=== PATIENT | male | born 1980 | race Caucasian/White ===

== ENCOUNTER 2019-03-22 20:31 | Emergency (ER) | payer MEDICAID, SELFPAY ==
[2019-03-22 20:32] VITALS: BP 172/90; PULSE 88; RESP 16; TEMP 36.6; O2SAT 97; BMI 39.6
--- NOTE | 2019-03-22 20:37 | ED.RN ---
AUNTS IN TRIAGE WITH PT, RELAYED TO THIS RN THAT PT CALLED THEM TO COME PICK HIM UP. PT FOUND SITTING ON [facility] OUTSIDE OF A [facility] ON [address]. PT TOLD AUNT HE WAS TRYING TO KEEP FROM CUTTING HIS WRISTS. AUNT STATES HE HAS A BROKEN CD CASE.
[2019-03-22 20:52] VITALS: RESP 16
[2019-03-22 21:06] LABS: Absolute Lymphocyte Count 1.39 X10^3/uL (0.83-4.51); Absolute Neutrophil Count 6.2 X10^3/uL (2.0-7.7); Basophil# 0.08 X10^3/uL; Basophil% 0.9 % (0-1); Eosinophil# 0.17 X10^3/uL; Eosinophils% 1.9 % (0-5); Hemoglobin 14.1 g/dL (13.0-16.5); Lymphocyte # 1.39 X10^3/ul (4.0); Lymphocyte % 15.8 % (19-41); Mean Corpuscular Hgb 26.8 pg (27.0-32.0); Mean Corpuscular Volume 83.5 fL (80-94); Monocyte# 0.84 X10^3/uL; Monocyte% 9.6 % (0-10); NRBC Flagged by Analyzer 0 % (0-5); Neutrophil # 6.22 X10^3/uL (2.7-7.7); Platelet Count 325 K/mm3 (150-450); RBC Distribution Width CV 12.8 % (11.6-14.6); RBC Distribution Width SD 38.5 fl (35.1-43.9); Red Blood Count 5.27 M/mm3 (4.6-6.2); White Blood Count 8.8 K/mm3 (4.4-11.0)
--- NOTE | 2019-03-22 21:07 | ED.VISSUMM ---
- ER Visit Summary Date of Service: 03/22/19 Chief Complaint: Suicidal ideation History of Present Illness: The patient is a 38 M presenting with suicidal ideation. Patient states that this has been ongoing for the past 3 days. He states he is under a lot of stress with family. He states he is going through a divorce and is not able to see his children. He has a history of previous suicide attempt with overdosing. He has thoughts of overdosing on sleeping pills while in a running car. Denies other complaints. Physical Examination: Vitals are stable. Patient is afebrile. Alert no acute distress. HEENT exam is unremarkable. Neck is supple. Lungs are clear and equal bilaterally. Heart is regular rate and rhythm. Extremities are unremarkable. Skin is warm and dry. No focal neurologic deficit. Depressed affect, suicidal ideation Remainder of exam is unremarkable. Emergency Department Course and Treatment: CBC, chemistries unremarkable. Alcohol negative. Tox is pending. Patient will be evaluated by social work in the ED. Disposition: Per social work Impression: Suicidal ideation This note was generated with [employer] dictation software. It may contain incorrect words, spelling, and punctuation that were not noted in review of the chart prior to signing ED Disposition - Plan for ED Patient: Referrals: NOT,DEFINED [NON-STAFF] -
[2019-03-22 21:19] LABS: Anion Gap 5 (5-15); BUN 15 mg/dL (7-18); BUN/Creat Ratio 16.2 RATIO (10-20); Calcium,Total 9.2 mg/dL (8.5-10.1); Chloride 109 mmol/L (98-107); Creatinine, Serum 0.93 mg/dL (0.70-1.30); EST Glomerular Filtration Rate 98 mL/min (>60); Est Glom Filt Rate - Afr Amer 118 mL/min (>60); Estimated Creatinine Clearance 134.81 ml/min; Glucose 103 mg/dL (74-106); Potassium 3.8 mmol/L (3.5-5.1); Sodium Level 140 mmol/L (136-145)
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
--- NOTE | 2019-03-22 21:35 | CM.ED ---
SOCIAL WORK CALL TO [facility], SPOKE WITH MURRAY. PER MURRAY, DOES HAVE MALE BEDS AVAILABLE AND FACILITY IS IN NETWORK WITH PATIENT'S INSURANCE-[employer]. REQUESTING REFERRAL BE FAXED.
[2019-03-22 21:52] VITALS: RESP 16
--- NOTE | 2019-03-22 21:55 | CM.ED ---
SOCIAL WORK REFERRAL FAXED TO [facility]. WILL NEED TO FAX TOX SCREEN ONCE RECEIVED. Maxi KANG, BRAZER FURNACE, VETERINARIAN ASSISTANT.
--- NOTE | 2019-03-22 22:15 | CM.ED ---
SOCIAL WORK CALL FROM MURRAY WITH [facility]. PATIENT ACCEPTED BY DR. WEBB FOR THE 1600 UNIT. NURSE TO CALL REPORT TO [phone]. MEDICAL STAFF AND PATIENT UPDATED. MACHINE COMPOSITOR TO ARRANGE FOR TRANSPORT. SECURE EMAIL SENT TO DAVID WITH THE [facility] TO UPDATE ON REFERRAL FOR PATIENT AFTER HOSPITALIZATION. Maxi KANG ,FOOD PREPARER, CERTIFIED OPHTHALMIC TECHNICIAN.
[2019-03-22 22:33] VITALS: BP 136/93; PULSE 82; RESP 16; O2SAT 98
[2019-03-22 22:48] LABS: Amphetamine Urine VISTA NEGATIVE (<1000 ng/mL); Barbiturate Urine VISTA NEGATIVE (< 200 ng/mL); Benzodiazepine Urine VISTA NEGATIVE (< 200 ng/mL); Cocaine Urine VISTA NEGATIVE (< 300 ng/mL); Ecstacy Urine VISTA NEGATIVE (< 500 ng/mL); Methadone Urine VISTA NEGATIVE (< 300 ng/mL); PCP Urine VISTA NEGATIVE (< 25 ng/mL); THC Urine VISTA POSITIVE (< 50 ng/mL); Vista UDS pH Range 5
[2019-03-22 23:09] VITALS: RESP 15
== END 2019-03-22 23:51 ==
LOC: ED 21:10
PROVIDERS: Emergency Provider Emergency Medicine
DX: R45.851 Suicidal ideations (principal); F41.9 Anxiety disorder, unspecified; F32.9 Major depressive disorder, single episode, unspecified; Z79.899 Other long term (current) drug therapy
CPT/HCPCS: 36415; 80048; 80307; 80320; 85025; 99284; G0480

== ENCOUNTER 2023-02-05 09:20 | Outpatient (CLI) | payer MEDICAID, SELFPAY ==
[2023-02-05 10:28] LABS: Absolute Lymphocyte Count 1.18 X10^3/uL (0.83-4.51); Absolute Neutrophil Count 7.8 X10^3/uL (2.0-7.7); Basophil# 0.07 X10^3/uL; Basophil% 0.7 % (0-1); Eosinophil# 0.16 X10^3/uL; Eosinophils% 1.6 % (0-5); Hematocrit 44.1 % (40-54); Hemoglobin 13.3 g/dL (13.0-16.5); Lymphocyte # 1.18 X10^3/ul (0.83-4.51); Lymphocyte % 12.1 % (19-41); Mean Corp Hgb Conc 30.2 g/dL (32-36); Mean Corpuscular Hgb 26.6 pg (27.0-32.0); Mean Corpuscular Volume 88.2 fL (80-94); Mean Platelet Vol. 9.7 fl (6.2-12.0); Monocyte# 0.49 X10^3/uL; NRBC Flagged by Analyzer 0 % (0-5); Neutrophil % 80.2 % (47-70); Platelet Count 454 K/mm3 (150-450); RBC Distribution Width CV 13.8 % (11.6-14.6); RBC Distribution Width SD 44.1 fl (35.1-43.9); White Blood Count 9.7 K/mm3 (4.4-11.0)
[2023-02-05 11:08] LABS: ALB/GLOB Ratio 0.9 RATIO (0.9-2.4); AST(SGOT) 27 U/L (15-37); Alanine Aminotransfer ALT/SGPT 58 U/L (16-61); Albumin, Serum 3.6 g/dL (3.2-5.0); Alkaline Phosphatase 84 U/L (45-117); Anion Gap 5 (5-15); BUN 14 mg/dL (7-18); BUN/Creat Ratio 17.4 RATIO (10-20); Calcium,Total 9.1 mg/dL (8.5-10.1); Chloride 110 mmol/L (98-107); Cholesterol 184 mg/dL (200); EST Glomerular Filtration Rate 113 mL/min (>60); Est Glom Filt Rate - Afr Amer 136 mL/min (>60); Globulin 3.8 g/dL (2.2-4.2); Glucose 155 mg/dL (74-106); High Density Lipoprotein 42 mg/dL; Potassium 4.2 mmol/L (3.5-5.1); Protein, Total 7.4 g/dL (6.4-8.2); Sodium Level 141 mmol/L (136-145); Thyroid Stim Hormone (TSH) 4.91 uIU/mL (0.358-3.74); Triglycerides 115 mg/dL; Very Low Density Lipoprotein 23 mg/dL (5-40)
== END 2023-02-05 23:59 | disposition home or self-care (01) ==
PROVIDERS: PCP Family Medicine; Visit Provider Family Medicine
DX: E78.9 Disorder of lipoprotein metabolism, unspecified (principal); R79.89 Other specified abnormal findings of blood chemistry; F41.9 Anxiety disorder, unspecified; Z13.1 Encounter for screening for diabetes mellitus
CPT/HCPCS: 36415; 80053; 80061; 84443; 85025